=== PATIENT | male | born 1940 | race Caucasian/White ===

== ENCOUNTER 2021-04-25 10:19 | Inpatient (IN) ==
[2021-04-25] MEDS ORDERED: ONDANSETRON 4 MG/2 ML VIAL IV PRN ×2 (11:15→15:10)
[2021-04-25] MEDS ORDERED: LACTATED RINGERS 1,000 ML IV SCH (11:30)
[2021-04-25] MEDS ORDERED: propofoL 200 MG/20 ML VIAL IV ONE ×3 (13:57→14:31)
[2021-04-25] MEDS ORDERED: LIDOCAINE 2% 5 ML VIAL ONE (13:57)
[2021-04-25] MEDS ORDERED: ACETAMINOPHEN 325 MG TABLET PO PRN (15:10)
[2021-04-25] MEDS ORDERED: ALBUTEROL/IPRATROPIUM 3 ML NEB RESP TX PRN (15:10)
[2021-04-25] MEDS ORDERED: HYDROmorphone 2 MG/1 ML VIAL IV PRN ×2 (15:10)
[2021-04-25] MEDS: LACTATED RINGERS 1,000 ML IV SCH (15:29)
[2021-04-25 15:51] LABS: Hemoglobin 9.9 GM/DL (14.0-18.0); Platelet Count 191 T/CUMM (130-400); Red Cell Distribution Width 17.2 % (9.3-17.3)
[2021-04-25 16:01] LABS: INR 1.1
[2021-04-25] MEDS ORDERED: INFLUENZA VIRUS VACCINE 0.5 ML SYRINGE IM ONE (16:03)
[2021-04-25 16:07] LABS: Calcium 9.1 MG/DL (8.5-10.1); Osmolality,Calculated 277.4 MOS/KG (273-304); Potassium 3.8 MMOL/L (3.5-5.1)
[2021-04-25 16:11] LABS: Basophils % 0.6 % (0.0-0.8); Eosinophils # 0.1 10*3/uL (0.0-0.87); Hematocrit 33.9 VOL% (42.0-52.0); Immature Granulocytes % 0.4 %; Immature Granulocytes Absolute 0.03 #; Lymphocytes # 1.2 10*3/uL (1.4-4.0); Lymphocytes % 17.3 % (21.2-54.2); Mean Corpuscular HGB Conc 29.2 GM/DL (32-36); Mean Corpuscular Volume 73.4 FL (87-102); Mean Platelet Volume 9.1 FL (9.6-12.0); Monocytes % 7.6 % (1.7-12.7); Neutrophils % 73.1 % (38.7-73.9); Red Blood Count 4.62 MC/CUMM (3.8-5.5); White Blood Count 6.9 T/CUMM (4-12)
[2021-04-25] MEDS: ALFUZOSIN 10 MG TABLET PO SCH (20:51)
[2021-04-25] MEDS: SOTALOL 80 MG TABLET PO SCH (20:52)
[2021-04-26] MEDS: LACTATED RINGERS 1,000 ML IV SCH ×3 (00:03→16:12)
[2021-04-26] MEDS ORDERED: GABAPENTIN 300 MG CAPSULE PO ONE (09:00)
[2021-04-26] MEDS ORDERED: LISINOPRIL/HCTZ 20-12.5 MG TABLET PO SCH (09:00)
[2021-04-26] MEDS ORDERED: ALVIMOPAN 12 MG CAPSULE PO ONE (09:00)
[2021-04-26] MEDS ORDERED: IBUPROFEN 400 MG TABLET PO ONE (09:00)
[2021-04-26] MEDS: SOTALOL 80 MG TABLET PO SCH ×2 (09:59→21:02)
[2021-04-26] MEDS ORDERED: ERTAPENEM 1,000 MG in SODIUM CHLORIDE 0.9% 100 ML IV ONE (10:00)
[2021-04-26] MEDS ORDERED: MAGNESIUM SULF RIDER 2 GM/50 ML PREMIX IV ONE ×2 (10:09→19:30)
[2021-04-26] MEDS ORDERED: fentaNYL 100 MCG/2 ML VIAL ONE ×2 (10:17→11:58)
[2021-04-26] MEDS ORDERED: MIDAZOLAM 2 MG/2 ML VIAL ONE (10:17)
[2021-04-26] MEDS ORDERED: ROPIVACAINE 0.5% 30 ML VIAL ONE (10:24)
[2021-04-26] MEDS ORDERED: PHENYLEPHRINE 10 MG/1 ML VIAL IV ONE ×2 (11:20→13:33)
[2021-04-26] MEDS ORDERED: SEVOFLURANE 1 UNIT/15 MINUTE INH ONE (11:38)
[2021-04-26] MEDS ORDERED: PHENYLEPHRINE 1 MG/10 ML SYRINGE IV ONE (11:38)
[2021-04-26] MEDS ORDERED: ROCURONIUM 50 MG/5 ML VIAL IV ONE (11:38)
[2021-04-26] MEDS ORDERED: propofoL 200 MG/20 ML VIAL IV ONE (11:38)
[2021-04-26] MEDS ORDERED: LIDOCAINE 2% 5 ML VIAL ONE (11:38)
[2021-04-26] MEDS ORDERED: DEXAMETHASONE 4 MG/1 ML VIAL ONE (11:39)
[2021-04-26] MEDS ORDERED: ONDANSETRON 4 MG/2 ML VIAL ONE (11:39)
[2021-04-26] MEDS ORDERED: INDOCYANINE GREEN 25 MG VIAL IV ONE (12:48)
[2021-04-26] MEDS: ASPIRIN EC 81 MG TABLET PO SCH (13:22)
[2021-04-26] MEDS ORDERED: NEOSTIGMINE 10 MG/10 ML VIAL ONE (13:37)
[2021-04-26] MEDS ORDERED: GLYCOPYRROLATE 0.4 MG/2 ML VIAL ONE (13:37)
[2021-04-26] MEDS ORDERED: TISSUE ADHESIVE 1 EACH APPLICATOR TOP ONE (13:52)
[2021-04-26] MEDS ORDERED: LACTATED RINGERS 1,000 ML IV SCH (16:32)
[2021-04-26] MEDS ORDERED: KETOROLAC 15 MG/1 ML VIAL IV SCH (17:00)
[2021-04-26] MEDS: PANTOPRAZOLE 40 MG TABLET PO SCH (17:19)
[2021-04-26] MEDS: PREGABALIN 75 MG CAPSULE PO SCH (17:19)
[2021-04-26] MEDS: ALFUZOSIN 10 MG TABLET PO SCH ×2 (17:20→21:02)
[2021-04-26 18:21] LABS: Calcium 8.4 MG/DL (8.5-10.1); Osmolality,Calculated 278.5 MOS/KG (273-304); Potassium 4.7 MMOL/L (3.5-5.1)
[2021-04-26] MEDS: ALVIMOPAN 12 MG CAPSULE PO SCH (21:02)
[2021-04-26] MEDS: KETOROLAC 15 MG/1 ML VIAL IV SCH (21:02)
[2021-04-27] MEDS: KETOROLAC 15 MG/1 ML VIAL IV SCH ×4 (02:38→20:45)
[2021-04-27 05:29] LABS: Basophils % 0.1 % (0.0-0.8); Hematocrit 30.1 VOL% (42.0-52.0); Hemoglobin 8.7 GM/DL (14.0-18.0); Immature Granulocytes % 0.5 %; Immature Granulocytes Absolute 0.08 #; Lymphocytes # 0.7 10*3/uL (1.4-4.0); Lymphocytes % 3.7 % (21.2-54.2); Mean Corpuscular HGB Conc 28.9 GM/DL (32-36); Mean Corpuscular Volume 74.7 FL (87-102); Mean Platelet Volume 9.4 FL (9.6-12.0); Monocytes % 3.9 % (1.7-12.7); Neutrophils % 91.8 % (38.7-73.9); Platelet Count 147 T/CUMM (130-400); Red Blood Count 4.03 MC/CUMM (3.8-5.5); White Blood Count 17.5 T/CUMM (4-12)
[2021-04-27 05:46] LABS: Band Neutrophils 2 % (0-10); Lymphocytes 5 % (20-55); Platelet Estimate Normal; Segmented Neutrophils 91 % (50-85); Total Cells Counted 100
[2021-04-27 05:47] LABS: Hypochromasia Slight; Microcytosis 1+
[2021-04-27 05:49] LABS: Calcium 8.2 MG/DL (8.5-10.1); Osmolality,Calculated 283.3 MOS/KG (273-304); Potassium 3.9 MMOL/L (3.5-5.1)
[2021-04-27 07:16] LABS: Basophils % 0.1 % (0.0-0.8); Eosinophils % 0.1 % (0.00-10.9); Hematocrit 34.5 VOL% (42.0-52.0); Immature Granulocytes % 0.4 %; Immature Granulocytes Absolute 0.05 #; Lymphocytes # 0.8 10*3/uL (1.4-4.0); Lymphocytes % 5.5 % (21.2-54.2); Mean Corpuscular HGB Conc 28.7 GM/DL (32-36); Mean Corpuscular Volume 76.3 FL (87-102); Mean Platelet Volume 9.6 FL (9.6-12.0); Monocytes % 3.9 % (1.7-12.7); NRBC # 0.02 10*3/uL; Platelet Count 184 T/CUMM (130-400); Red Blood Count 4.52 MC/CUMM (3.8-5.5); Red Cell Distribution Width 17.2 % (9.3-17.3); White Blood Count 13.9 T/CUMM (4-12)
[2021-04-27 07:17] LABS: Hemoglobin 9.9 GM/DL (14.0-18.0)
[2021-04-27] MEDS: ASPIRIN EC 81 MG TABLET PO SCH (08:38)
[2021-04-27] MEDS: ALFUZOSIN 10 MG TABLET PO SCH ×2 (08:38→20:45)
[2021-04-27] MEDS: SOTALOL 80 MG TABLET PO SCH ×3 (08:38→20:01)
[2021-04-27] MEDS: ALVIMOPAN 12 MG CAPSULE PO SCH ×2 (08:38→20:45)
[2021-04-27] MEDS: PANTOPRAZOLE 40 MG TABLET PO SCH (08:39)
[2021-04-27] MEDS: ENOXAPARIN 40 MG/0.4 ML SYRINGE SUBCUT SCH (08:40)
[2021-04-27] MEDS: PREGABALIN 75 MG CAPSULE PO SCH ×2 (08:41→08:49)
[2021-04-27 13:25] LABS: Hemoglobin 8.1 GM/DL (14.0-18.0)
[2021-04-28] MEDS: KETOROLAC 15 MG/1 ML VIAL IV SCH ×4 (05:10→20:10)
[2021-04-28 06:48] LABS: Basophils % 0.1 % (0.0-0.8); Eosinophils % 0.2 % (0.00-10.9); Hematocrit 26.9 VOL% (42.0-52.0); Immature Granulocytes % 0.8 %; Lymphocytes # 0.6 10*3/uL (1.4-4.0); Lymphocytes % 4.5 % (21.2-54.2); Mean Corpuscular HGB Conc 29.7 GM/DL (32-36); Mean Corpuscular Volume 74.1 FL (87-102); Mean Platelet Volume 9.5 FL (9.6-12.0); Monocytes % 5.4 % (1.7-12.7); Platelet Count 110 T/CUMM (130-400); Red Blood Count 3.63 MC/CUMM (3.8-5.5); Red Cell Distribution Width 17.5 % (9.3-17.3); White Blood Count 12.3 T/CUMM (4-12)
[2021-04-28 07:07] LABS: Calcium 8.3 MG/DL (8.5-10.1); Osmolality,Calculated 279.8 MOS/KG (273-304); Potassium 3.6 MMOL/L (3.5-5.1)
[2021-04-28 07:29] LABS: Band Neutrophils 13 % (0-10); Lymphocytes 7 % (20-55); Platelet Estimate Adequate; Segmented Neutrophils 73 % (50-85); Total Cells Counted 100
[2021-04-28 07:30] LABS: Anisocytosis 1+
[2021-04-28] MEDS: ALFUZOSIN 10 MG TABLET PO SCH ×2 (10:21→20:09)
[2021-04-28] MEDS: ALVIMOPAN 12 MG CAPSULE PO SCH ×2 (10:21→20:09)
[2021-04-28] MEDS: PANTOPRAZOLE 40 MG TABLET PO SCH (10:21)
[2021-04-28] MEDS: ASPIRIN EC 81 MG TABLET PO SCH (10:21)
[2021-04-28] MEDS: SOTALOL 80 MG TABLET PO SCH ×2 (10:21→20:09)
[2021-04-28] MEDS: PREGABALIN 75 MG CAPSULE PO SCH ×2 (10:22→10:44)
[2021-04-28] MEDS: SODIUM CHLORIDE 0.45% 1,000 ML IV SCH ×2 (14:01→19:00)
[2021-04-29] MEDS: SODIUM CHLORIDE 0.45% 1,000 ML IV SCH ×3 (02:53→19:19)
[2021-04-29] MEDS: KETOROLAC 15 MG/1 ML VIAL IV SCH ×4 (02:56→20:16)
[2021-04-29 07:45] LABS: Basophils % 0.2 % (0.0-0.8); Eosinophils # 0.2 10*3/uL (0.0-0.87); Eosinophils % 1.4 % (0.00-10.9); Hematocrit 26.4 VOL% (42.0-52.0); Hemoglobin 7.8 GM/DL (14.0-18.0); Immature Granulocytes % 1.2 %; Immature Granulocytes Absolute 0.14 #; Lymphocytes % 8.2 % (21.2-54.2); Mean Corpuscular HGB Conc 29.5 GM/DL (32-36); Mean Corpuscular Volume 73.9 FL (87-102); Mean Platelet Volume 9.3 FL (9.6-12.0); Monocytes % 6.5 % (1.7-12.7); Neutrophils % 82.5 % (38.7-73.9); Platelet Count 111 T/CUMM (130-400); Red Blood Count 3.57 MC/CUMM (3.8-5.5); Red Cell Distribution Width 17.2 % (9.3-17.3); White Blood Count 11.8 T/CUMM (4-12)
[2021-04-29 07:55] LABS: Amorphous Crystals,Urine Many /HPF (Few); Bilirubin,Urine Negative (Negative); Blood, Urine Small mg/dL (Negative); Glucose,Urine (UA) Negative (Negative); Ketones,Urine Negative (Negative); Mucus,Urine Occasional /LPF (Occasional); Nitrite,Urine Negative (Negative); Protein,Urine Negative; RBC,Urine 26 /HPF (0-4); Urine Appearance CLOUDY (Clear); Urine Color Yellow (Yellow); Urine Specific Gravity 1.023 (1.001-1.035); Urine Urobilinogen < 2.0 EU/DL (<2.0)
[2021-04-29 08:08] LABS: Anisocytosis 1+; Calcium 7.9 MG/DL (8.5-10.1); Osmolality,Calculated 277.8 MOS/KG (273-304); Platelet Estimate Adequate; Potassium 3.7 MMOL/L (3.5-5.1)
[2021-04-29] MEDS: ASPIRIN EC 81 MG TABLET PO SCH (08:28)
[2021-04-29] MEDS: ALFUZOSIN 10 MG TABLET PO SCH ×2 (08:29→20:16)
[2021-04-29] MEDS: SOTALOL 80 MG TABLET PO SCH ×2 (08:29→20:15)
[2021-04-29] MEDS: PANTOPRAZOLE 40 MG TABLET PO SCH (08:29)
[2021-04-29] MEDS: ALVIMOPAN 12 MG CAPSULE PO SCH ×2 (08:29→20:16)
[2021-04-29] MEDS: PREGABALIN 75 MG CAPSULE PO SCH (10:07)
[2021-04-29] MEDS ORDERED: LORATADINE 10 MG TABLET PO ONE (20:10)
[2021-04-30] MEDS: SODIUM CHLORIDE 0.45% 1,000 ML IV SCH (02:00)
[2021-04-30] MEDS: KETOROLAC 15 MG/1 ML VIAL IV SCH (03:21)
[2021-04-30] MEDS: PANTOPRAZOLE 40 MG TABLET PO SCH (09:07)
[2021-04-30] MEDS: PREGABALIN 75 MG CAPSULE PO SCH (09:08)
[2021-04-30] MEDS: SOTALOL 80 MG TABLET PO SCH (09:08)
[2021-04-30] MEDS: ASPIRIN EC 81 MG TABLET PO SCH (09:08)
[2021-04-30] MEDS: ALFUZOSIN 10 MG TABLET PO SCH (09:08)
[2021-04-30] MEDS: ALVIMOPAN 12 MG CAPSULE PO SCH (09:08)
[2021-04-30] MEDS: ENOXAPARIN 40 MG/0.4 ML SYRINGE SUBCUT SCH (09:09)
[2021-04-30 09:12] LABS: Basophils % 0.2 % (0.0-0.8); Eosinophils # 0.2 10*3/uL (0.0-0.87); Eosinophils % 1.8 % (0.00-10.9); Hematocrit 26.7 VOL% (42.0-52.0); Hemoglobin 7.9 GM/DL (14.0-18.0); Immature Granulocytes % 0.9 %; Immature Granulocytes Absolute 0.12 #; Lymphocytes # 0.8 10*3/uL (1.4-4.0); Lymphocytes % 6.2 % (21.2-54.2); Mean Corpuscular HGB Conc 29.6 GM/DL (32-36); Mean Corpuscular Volume 73.4 FL (87-102); Mean Platelet Volume 10.5 FL (9.6-12.0); Monocytes % 6.5 % (1.7-12.7); NRBC # 0.02 10*3/uL; Neutrophils % 84.4 % (38.7-73.9); Platelet Count 133 T/CUMM (130-400); Red Blood Count 3.64 MC/CUMM (3.8-5.5); Red Cell Distribution Width 17.2 % (9.3-17.3)
[2021-04-30 09:25] LABS: Calcium 7.9 MG/DL (8.5-10.1); Osmolality,Calculated 277.8 MOS/KG (273-304); Potassium 3.8 MMOL/L (3.5-5.1)
[2021-04-30 15:47] VITALS: BP 153/68
[2021-04-30] MEDS ORDERED: INFLUENZA VIRUS VACCINE 0.5 ML SYRINGE IM ONE (16:03)
== END 2021-04-30 16:30 | disposition home health service (06) | DRG 329 ==
LOC: N.GILAB 10:19 → N.2E 15:10
PROVIDERS: ADMIT Surgery; ATTEND Internal Medicine Gastroenterology